=== PATIENT | female | born 1990 | race Caucasian/White ===

== ENCOUNTER → 2017-03-22 | Outpatient (CLI) | payer MEDICAID ==
--- NOTE | 2017-03-22 16:49 | RADIOLOGY REPORT PS360 ---
US PREG COMP: INDICATION: 20 WEKK ANATOMICAL SURVEY ORDERING PHYSICIAN: Yony Terry MD PATIENT AGE: 26 years TECHNIQUE: ultrasound transabdominal scanning. COMPARISON: No previous relevant studies. FINDINGS: Single viable intrauterine gestation. Breech position. Placenta: Anterior placenta grade 1. There is average amount fluid. The cervix appears satisfactory. Closed and measuring 3.5 cm in length. Complete survey performed and was unremarkable on the submitted images as in PACS. No discrete anomalies identified on survey imaging by technologist. Active fetus. Three-vessel cord with satisfactory umbilical cord insertion. 4- chamber heart noted. Survey of brain & ventricles. Face and neck survey unremarkable. Diaphragm and chest views unremarkable. Abdomen: Both kidneys noted and unremarkable. Stomach noted and satisfactory. Spine: Survey of the spine satisfactory with no anomalies identified nor imaged. Both arms and legs noted. Amniotic Fluid: Adequate. Maternal adnexa: No significant findings. Measurements: Average ultrasound age 20 weeks 0 days. Gestational Age 20 weeks 3 days. Estimated due date by ultrasound age 1008/09/2017. Estimated weight 327 grams. BPD = 20 weeks 1 day OFD = 20 weeks 1 day HC = 19 weeks 2 days AC = 20 weeks 1 day FL = 20 weeks 1 day Heart Rate = 139 BPM Cerebellum = 20 weeks 1 day Humerus = 20 weeks 4 days HC/AC is 1.12. CI is 80%. FL/BPD is 70%. FL/AC is 22%. IMPRESSION: There is a single live fetus present in breech presentation with an average ultrasound age of 20 weeks and 0 days. No obvious anomalies evident. Placenta is anterior. Please see above for detail.
== END ==
LOC: RAD 14:00
DX: Z36 Encounter for antenatal screening of mother (principal)

== ENCOUNTER → 2017-07-17 | Outpatient (CLI) | payer MEDICAID ==
[~2017-07-17] MED LIST: PRENATAL PLUS1 TA1 PO
== END ==
LOC: LAB 15:02
DX: Z34.80 Encounter for supervision of other normal pregnancy, unspecified trimester (principal)

== ENCOUNTER 2017-08-01 21:00 | Inpatient (IN) | payer MEDICAID ==
[~2017-08-01] VITALS: Ht 157.5 cm; Wt 95.0 kg
[2017-08-01 21:43] VITALS: BP 136/74
[2017-08-01 21:53] LABS: URINE BILIRUBIN - DIPSTICK NEGATIVE (NEG); URINE BLOOD 2+ (NEG)
[2017-08-01 23:10] LABS: LYMPH # 1.5 K/mm3 (0.7-4.5); LYMPH % 11.3 % (10-50.0)
[2017-08-01 23:46] LABS: ABO BLOOD TYPE A; RH BLOOD TYPE POSITIVE
[2017-08-02 00:59] LABS: URINE BILIRUBIN - DIPSTICK NEGATIVE (NEG); URINE BLOOD TRACE-INTACT (NEG)
[2017-08-02 01:18] LABS: AMPHETAMINES/METAMPHETAMINES NEGATIVE ng/mL (<1000)
[2017-08-02 05:36] VITALS: BP 131/76
--- NOTE | 2017-08-02 05:52 | ACUTE CARE PROGRESS NOTE (QUA) ---
Progress Notes Subjective Date 08/02/17 Time 0550 Assessment/Plan This inpt stay is expected to cross 2 MNs from start of care Yes (OB delivery) Comments: This 27-year-old 2, para 2, AB 0 white female, now at 39 weeks of gestation, was admitted last evening with regular contractions at 3 cm of dilatation. She has labored throughout the night without any problems, and has an epidural in situ. Her cervix is now completely effaced, completely dilated, with the presenting vertex at 0 station. Her bag of water ruptured spontaneously at approximately 05 30, and that was fairly thick meconium. The baby, however, has looked good on the monitor at this time. The plan is for vaginal delivery, with supervisor bottle machines at bedside. at 0595
--- NOTE | 2017-08-02 05:52 | ACUTE CARE PROGRESS NOTE (QUA) ---
Progress Notes Subjective Date 08/02/17 Time 0550 Assessment/Plan This inpt stay is expected to cross 2 MNs from start of care Yes (OB delivery) Comments: This 27-year-old 2, para 2, AB 0 white female, now at 39 weeks of gestation, was admitted last evening with regular contractions at 3 cm of dilatation. She has labored throughout the night without any problems, and has an epidural in situ. Her cervix is now completely effaced, completely dilated, with the presenting vertex at 0 station. Her bag of water ruptured spontaneously at approximately 05 30, and that was fairly thick meconium. The baby, however, has looked good on the monitor at this time. The plan is for vaginal delivery, with manager corporate responsibility at bedside. at 0504
--- NOTE | 2017-08-02 06:23 | Delivery Note ---
Delivery note Delivery date: 08/02/17 Delivery time: 604 Anesthesia: Epidural Was labor medically induced? No Gestational age in weeks: 39 weeks Delivery prior to 39 weeks? No Sex: female score at one minute: 2 at 5 minutes: 7 Type of suction: delee AF: Meconium Delivery procedure: Forceps Delivery Delivery of placenta: manual Clinical note This 27-year-old 2, now para 2, AB 0 white female was admitted at 38 and 67 weeks on the evening of 08/01/17, with regular contractions. She labored throughout the night without complications, under labor epidural, which worked well. At approximately 05 30, she experienced spontaneous rupture of membranes, with a large amount of moderately thick meconium. Is completely dilated at that time. An internal electrode was placed, and the patient pushed ineffectively. The baby's heart rate dropped to approximately 100, and she was delivered by outlet forceps, without an episiotomy. It was a nuchal cord 1, which was easily reduced. The cord was clamped and cut, 3 vessels were noted to be within the cord, and cord blood was obtained. The baby was bulb suctioned and DeLee suctioned on the perineum, prior to delivery of the chest. There was approximately 3 mL of particulate meconium retrieved. The baby was then attended by Dr. Rucker (environmental education specialist) who assigned Apgars of 2 at 1 minute and 7 at 5 minutes to this 6 lbs. 15 oz., 19 inch female , born at 0605. There were no lacerations. The placenta did not deliver spontaneously, and so was manually delivered, fragmented. The uterus was inspected and was felt to be clean, and was involuting well, with IV Pitocin running. The estimated blood loss was 350 mL the patient tolerated the procedure well, and was recovered in excellent condition. Her blood type is A positive. Her rubella titer is immune. She plans to breast-feed. at 0601
[2017-08-02 19:30] VITALS: BP 125/63
[2017-08-03 07:22] LABS: HEMOGLOBIN 11.2 g/dL (12.2-16.2)
[2017-08-03 09:00] VITALS: BP 115/75
--- OUTSIDE RECORDS SUMMARY | 2017-08-03 18:39 | External Medical Summary Rpt | CCD ---
Demographics Home Phone Preferred Language Chinese Marital Status Unknown Bahai Affiliation Unknown Race {RaceCode} Ethnic Group Unknown Author Author , GRABIEL SPAIN Address Unknown Phone [email or web address] Purpose Continuity of Care Document - 12-28-2015 through 2016 Results Labs Lab Lab Date Result Refere Interp Status Commen Order Detail nces retati t Range on Urinalysis dipstick W Reflex Microscopic panel in Urine (08-01-2017 21:15) Appeara CLEAR CLEAR complet nce of 017 ed Urine 21:15 Bilirub NEGATIV NEG complet in 017 E ed [Presen 21:15 ce] in Urine by Test strip Erythro 2+ NEG Abnorma complet cytes 017 l ed [Presen 21:15 ce] in Urine Color YELLOW YELLOW complet of 017 ed Urine 21:15 Ketones 08-01-2 1+ NEG Abnorma complet 017 l ed [Presen 21:15 ce] in Urine by Automat ed test strip Mucus NEGATIV NEG complet [Presen 017 E ed ce] in 21:15 Urine sedimen t by Light microsc opy Nitrite NEGATIV NEG complet 017 E ed [Presen 21:15 ce] in Urine by Test strip Urobili 0.2 NEG complet nogen 017 ed [Presen 21:15 ce] in Urine by Test strip Drugs identified in Urine by Screen method (05-24-2017 13:43) Ampheta NEGATIV <1000 complet mine 017 E ed [Presen 13:43 ce] in Urine by Screen method 11-Hydr NEGATIV <50 complet oxy 017 E ed delta-9 13:43 tetrahy drocann abinol [Presen ce] in Unspeci fied specime n Urinalysis dipstick W Reflex Microscopic panel in Urine (05-24-2017 13:43) Bacteri 4+ O complet a 017 ed [Presen 13:43 ce] in Urine sedimen t by Light microsc opy Epithel 20-50 0#/hp complet ial 017 f - ed cells.s 13:43 5#/hp quamous f [Presen ce] in Urine sedimen t by Microsc opy high power field Leukocy 5-10 O complet christina 017 wbc/hpf ed [#/volu 13:43 me] in Urine Urinalysis dipstick W Reflex Microscopic panel in Urine (05-24-2017 13:43) Appeara SL CLEAR complet nce of 017 CLOUDY ed Urine 13:43 Bilirub NEGATIV NEG complet in 017 E ed [Presen 13:43 ce] in Urine by Test strip Erythro NEGATIV NEG complet cytes 017 E ed [Presen 13:43 ce] in Urine Color YELLOW YELLOW complet of 017 ed Urine 13:43 Ketones TRACE NEG Abnorma complet 017 l ed [Presen 13:43 ce] in Urine by Automat ed test strip Mucus 1+ NEG Abnorma complet [Presen 017 l ed ce] in 13:43 Urine sedimen t by Light microsc opy Nitrite NEGATIV NEG complet 017 E ed [Presen 13:43 ce] in Urine by Test strip Urobili 0.2 NEG complet nogen 017 ed [Presen 13:43 ce] in Urine by Test strip Blood group antibody screen [Presence] in Serum or Plasma (03-08-2017 09:46) Blood 03-08- NEGATIV NEGATIV complet group 017 E E ed antibod 09:46 y screen [Presen ce] in Serum or Plasma Rh [Type] in Blood (03-08-2017 09:46) Rh -19-2 POSITIV complet [Type] 017 E ed in 09:46 Blood ABO group [Type] in Blood (03-08-2017 09:46) ABO --2 A complet group 017 ed [Type] 09:46 in Blood CHLAMYDIA AND GONORRHEA TESTING (12-28-2015 09:30) Chlamyd POSITIV complet ia 016 E ed trachom 09:30 atis rRNA [Presen ce] in Unspeci fied specime n by Probe & target amplifi cation method Neisser NEGATIV complet ia 016 E ed gonorrh 09:30 oeae rRNA [Presen ce] in Unspeci fied specime n by Probe & target amplifi cation method CHLAMYDIA AND GONORRHEA TESTING (12-28-2015 09:30) COLLECT PATIENT complet OR 016 /[id number] ed 09:30 ETHNICI WHITE, complet TY 016 NON-HIS ed 09:30 PANIC KIT complet EXPIRAT 016 016 ed ION 09:30 DATE SYMPTOM NO complet S 016 ed 09:30 REASON REVISIT complet FOR 016 /ANNUAL ed REQUEST 09:30 FAMILY PLANNIN G VISIT SPECIME URINE complet N 016 ed SOURCE 09:30 PREGNAN NO complet T 016 ed 09:30 CHART NA complet NUMBER 016 ed 09:30 Chlamyd Pending complet ia 016 ed trachom 09:30 atis rRNA [Presen ce] in Unspeci fied specime n by Probe & target amplifi cation method Neisser Pending complet ia 016 ed gonorrh 09:30 oeae rRNA [Presen ce] in Unspeci fied specime n by Probe & target amplifi cation method
--- OUTSIDE RECORDS SUMMARY | 2017-08-03 18:39 | External Medical Summary Rpt | CCD ---
Demographics Home Phone Preferred Language Swiss Marital Status Unknown Jewish Affiliation Unknown Race {RaceCode} Ethnic Group Unknown Author Author , GRABIEL SPAIN Address Unknown Phone [email or web address] Purpose Continuity of Care Document - 12-28-2015 [...]
--- OUTSIDE RECORDS SUMMARY | 2017-08-03 18:39 | External Medical Summary Rpt | CCD ---
Demographics Preferred Language Czech Marital Status Unknown Buddhist Affiliation Unknown Race Unknown Ethnic Group Unknown Author Author , GRABIEL SPAIN Address Unknown Phone Immunization No patient found.
--- OUTSIDE RECORDS SUMMARY | 2017-08-03 18:39 | External Medical Summary Rpt | CCD ---
Demographics Preferred Language Tajik Marital Status Unknown Voodoo Affiliation Unknown Race Unknown Ethnic Group Unknown Author Author , GRABIEL SPAIN Address Unknown Phone Immunization No patient found.
--- OUTSIDE RECORDS SUMMARY | 2017-08-03 18:39 | External Medical Summary Rpt | CCD ---
Author Author [employer] Organization [employer] Address Unknown Phone Unavailable Purpose Continuity of Care Document - through 2016
--- OUTSIDE RECORDS SUMMARY | 2017-08-03 18:40 | External Medical Summary Rpt ---
Author Author [employer] Nunez, [employer] Organization [employer] Address Unknown Phone Unavailable Results Urinalysis dipstick W Reflex Microscopic panel in Urine Observa Value Referen Units Interpr Notes Date tion ce etation Range Collected by nurse? Y Hold specimen in OE? N Appeara CLEAR CLEAR No No No Aug 01 nce of informa informa informa 2016 Urine tion in tion in tion in 9:15 PM source source source data data data Bilirub NEGATIV NEG No No No Aug 01 in E informa informa informa 2016 [Presen tion in tion in tion in 9:15 PM ce] in source source source Urine data data data by Test strip Erythro 2+ NEG No Abnorma No Aug 01 cytes informa l informa 2016 [Presen tion in tion in 9:15 PM ce] in source source Urine data data Color YELLOW YELLOW No No No Aug 01 of informa informa informa 2016 Urine tion in tion in tion in 9:15 PM source source source data data data Glucose NEG No No No Aug 01 [Mass/vol informati informati informati 2017 9:15 ume] in on in on in on in PM Urine by source source source Test data data data strip Ketones 1+ NEG mg/dL Abnorma No Aug 01 l informa 2016 [Presen tion in 9:15 PM ce] in source Urine data by Automat ed test strip Mucus NEGATIV NEG No No No Aug 01 [Presen E informa informa informa 2016 ce] in tion in tion in tion in 9:15 PM Urine source source source sedimen data data data t by Light microsc opy Nitrite NEGATIV NEG No No No Aug 01 E informa informa informa 2016 [Presen tion in tion in tion in 9:15 PM ce] in source source source Urine data data data by Test strip pH of 5.0 - 8.5 No Normal No Aug 01 Urine informati informati 2017 9:15 on in on in PM source source data data Protein NEG mg/dL No No Aug 01 [Mass/vol informati informati 2016 9:15 ume] in on in on in PM Urine by source source Automated data data test strip Specific 1.005 - No Normal No Aug 01 gravity 1.030 informati informati 2016 9:15 of Urine on in on in PM source source data data Urobili 0.2 NEG E.U./dL No No Aug 01 nogen informa informa 2016 [Presen tion in tion in 9:15 PM ce] in source source Urine data data by Test strip Fibronectin. [Mass/volume] in Vaginal fluid Observa Value Referen Units Interpr Notes Date tion ce etation Range Fibronect NEGATIVE No No May 24 in. informati informati FIBRONECT 2017 2:05 [Mass/vol on in on in IN PM ume] in source source INTERPRET Vaginal data data ATION:Sym fluid ptomatic women: There is an increased risk of deliveryw ithin 14 days for positive results obtained between 24weeks and 34 weeks,6 days of gestation .Asymptom atic women: There is an increased risk of deliverya t less than 35 weeks for positive results obtained [id number] weeks and 30 weeks,6 days of gestation . Drugs identified in Urine by Screen method Observa Value Referen Units Interpr Notes Date tion ce etation Range Collected by nurse? N Hold specimen in OE? Y Positive urine drug screen samples are stored for 7 days. Contact the Lab if confirmation of positives is needed. Ampheta NEGATIV <1000 ng/mL No No May 24 mine E informa informa 2016 [Presen tion in tion in 1:43 PM ce] in source source Urine data data by Screen method Barbitura <200 ng/mL No No May 24 christina informati informati 2016 1:43 [Mass/vol on in on in PM ume] in source source Urine by data data Screen method Benzodiaz 200 ng/mL ng/mL No No May 24 epines informati informati 2017 1:43 [Mass/vol on in on in PM ume] in source source Serum or data data Plasma by Screen method Cocaine <300 ng/g No No May 24 [Mass/vol informati informati 2017 1:43 ume] in on in on in PM Unspecifi source source ed data data specimen Methadone <300 ng/mL No No May 24 informati informati 2017 1:43 [Mass/vol on in on in PM ume] in source source Unspecifi data data ed specimen Opiates <300 ng/mL No No May 24 [Mass/vol informati informati 2017 1:43 ume] in on in on in PM Unspecifi source source ed data data specimen Phencycli <25 ng/mL No No May 24 dine informati informati 2017 1:43 [Mass/vol on in on in PM ume] in source source Unspecifi data data ed specimen 11-Hydr NEGATIV <50 ng/mL No No May 24 oxy E informa informa 2017 delta-9 tion in tion in 1:43 PM source source tetrahy data data drocann abinol [Presen ce] in Unspeci fied specime n Urinalysis dipstick W Reflex Microscopic panel in Urine Observa Value Referen Units Interpr Notes Date tion ce etation Range Collected by nurse? N Hold specimen in OE? Y Appeara SL CLEAR No No No May 24 nce of CLOUDY informa informa informa 2017 Urine tion in tion in tion in 1:43 PM source source source data data data Bacteri 4+ O No No No May 24 a informa informa informa 2016 [Presen tion in tion in tion in 1:43 PM ce] in source source source Urine data data data sedimen t by Light microsc opy Bilirub NEGATIV NEG No No No May 24 in E informa informa informa 2016 [Presen tion in tion in tion in 1:43 PM ce] in source source source Urine data data data by Test strip Erythro NEGATIV NEG No No No May 24 cytes E informa informa informa 2016 [Presen tion in tion in tion in 1:43 PM ce] in source source source Urine data data data Color YELLOW YELLOW No No No May 24 of informa informa informa 2017 Urine tion in tion in tion in 1:43 PM source source source data data data Glucose NEG No No No May 24 [Mass/vol informati informati informati 2017 1:43 ume] in on in on in on in PM Urine by source source source Test data data data strip Ketones TRACE NEG mg/dL Abnorma No May 24 l informa 2016 [Presen tion in 1:43 PM ce] in source Urine data by Automat ed test strip Mucus 1+ NEG No Abnorma No May 4 [Presen informa l inform2016 ce] in tion in tion in 1:43 PM Urine source source sedimen data data t by Light microsc opy Nitrite NEGATIV NEG No No No May 24 E informa informa informa 2016 [Presen tion in tion in tion in 1:43 PM ce] in source source source Urine data data data by Test strip pH of 5.0 - 8.5 No Normal No May 24 Urine informati informati 2017 1:43 on in on in PM source source data data Protein NEG mg/dL High No May 24 [Mass/vol informati 2017 1:43 ume] in on in PM Urine by source Automated data test strip Specific 1.005 - No Normal No May 24 gravity 1.030 informati informati 2017 1:43 of Urine on in on in PM source source data data Epithel 20-50 0 - 5 #/hpf No No May 24 ial informa informa 2016 cells.s tion in tion in 1:43 PM quamous source source data data [Presen ce] in Urine sedimen t by Microsc opy high power field Urobili 0.2 NEG E.U./dL No No May 24 nogen informa inform2016 [Presen tion in tion in 1:43 PM ce] in source source Urine data data by Test strip Leukocy [5 O wbc/hpf No No May 4 christina wbc/hpf informa informa 2016 [#/volu ; 10 tion in tion in 1:43 PM me] in wbc/hpf source source Urine ] data data Urinalysis dipstick W Reflex Microscopic panel in Urine Observa Value Referen Units Interpr Notes Date tion ce etation Range Collected by nurse? N Hold specimen in OE? Y Appeara SL CLEAR No No No May 24 nce of CLOUDY informa informa informa 2016 Urine tion in tion in tion in 1:43 PM source source source data data data Bilirub NEGATIV NEG No No No May 4 in E informa informa informa 2016 [Presen tion in tion in tion in 1:43 PM ce] in source source source Urine data data data by Test strip Erythro NEGATIV NEG No No No May 24 cytes E informa informa informa 2016 [Presen tion in tion in tion in 1:43 PM ce] in source source source Urine data data data Color YELLOW YELLOW No No No May 4 of informa informa informa 2016 Urine tion in tion in tion in 1:43 PM source source source data data data Glucose NEG No No No May 24 [Mass/vol informati informati informati 2016 1:43 ume] in on in on in on in PM Urine by source source source Test data data data strip Ketones TRACE NEG mg/dL Abnorma No May 24 l informa 2016 [Presen tion in 1:43 PM ce] in source Urine data by Automat ed test strip Mucus 1+ NEG No Abnorma No May 4 [Pres informa l informa 2016 ce] in tion in tion in 1:43 PM Urine source source sedimen data data t by Light microsc opy Nitrite NEGATIV NEG No No No May 24 E informa informa informa 2016 [Presen tion in tion in tion in 1:43 PM ce] in source source source Urine data data data by Test strip pH of 5.0 - 8.5 No Normal No May 24 Urine informati informati 2017 1:43 on in on in PM source source data data Protein NEG mg/dL High No May 24 [Mass/vol informati 2016 1:43 ume] in on in PM Urine by source Automated data test strip Specific 1.005 - No Normal No May 24 gravity 1.030 informati informati 2017 1:43 of Urine on in on in PM source source data data Urobili 0.2 NEG E.U./dL No No May 24 nogen informa informa 2016 [Presen tion in tion in 1:43 PM ce] in source source Urine data data by Test strip HBsAg Screen Observa Value Referen Units Interpr Notes Date tion ce etation Range Hepatit Negativ Negativ No No Perform March 08 is B e e informa informa ed at: 2016 virus tion in tion in CB - 9:46 AM surface source source [facility] Ag data data [Pres ce] in [address] by [facility], [facility], [facility] [id number] Directo r: Mychal Sethi ti PhD, Phone: [phone] HIV Screen 4th Generation wRfx Observa Value Referen Units Interpr Notes Date tion ce etation Range Reagin Ab [Titer] in Serum by RPR Observa Value Referen Units Interpr Notes Date tion ce etation Range Reagin Ab NonRea<1: No No No March 08 [Titer] 1 informati informati informati 2016 9:46 in Serum on in on in on in AM by RPR source source source data data data Rubella virus IgG Ab [Units/volume] in Serum by Immunoassay Observa Value Referen Units Interpr Notes Date tion ce etation Range Rubella Immune index No Non-immun March 08 virus IgG >0.99 informati e 2016 9:46 Ab on in <0.90Equi AM [Units/vo source vocal lume] in data 0.90 - Serum by 0.99Immun Immunoass e ay >0.99 Blood group antibody screen [Presence] in Serum or Plasma Observa Value Referen Units Interpr Notes Date ti ce etation Range Blood NEGATIV NEGATIV No No No March 08 group E E informa informa informa 2016 antibod tion in ti in in 9:46 AM y source source source screen data data data [Presen ce] in Serum or Plasma Rh [Type] in Blood Observa Value Referen Units Interpr Notes Date ti ce etation Range Rh POSITIV No No No No March 08 [Type] E informa informa informa informa 2016 in tion in tion in tion in ti in 9:46 AM Blood source source source source data data data data ABO group [Type] in Blood Observa Value Referen Units Interpr Notes Date ti ce etation Range ABO A No No No No March 08 group informa informa informa informa 2016 [Type] tion in tion in tion in ti in 9:46 AM in source source source source Blood data data data data CBC W Auto Differential panel in Blood Observa Value Referen Units Interpr Notes Date ti ce etation Range Basophils 0 - 0.2 K/MM3 Normal No March 08 informati 2016 9:46 [#/volume on in AM ] in source Blood by data Automated count Basophils 0.1 - 2.0 % Normal No March 08 informati 2016 9:46 leukocyte on in AM s in source Blood by data Automated count Eosinophi 0.0 - 0.4 K/mm3 Normal No March 08 ls informati 2016 9:46 [#/volume on in AM ] in source Blood by data Automated count Eosinophi 0.1 - % Normal No March 08 ls/100 12.0 informati 2016 9:46 leukocyte on in AM s in source Blood by data Automated count Granulocy 1.8 - 7.8 K/mm3 Normal No March 08 christina informati 2016 9:46 [#/volume on in AM ] in source Blood by data Automated count Granulocy 37.0 - % Normal No March 08 christina/100 80.0 informati 2016 9:46 leukocyte on in AM s in source Blood by data Automated count Hematocri 37.0 - % Low No March 08 t [Volume 47.0 informati 2016 9:46 on in AM Fraction] source of Blood data Hemoglobi 12.2 - g/dL No March 08 n 16.2 informati informati 2016 9:46 [Mass/vol on in on in AM ume] in source source Blood data data Lymphocyt 0.7 - 4.5 K/mm3 Normal No March 08 es informati 2016 9:46 [#/volume on in AM ] in source Unspecifi data ed specimen by Automated count Lymphocyt 10 - 50.0 % Normal No March 08 es inform2016 9:46 [#/volume on in AM ] in source Unspecifi data ed specimen by Automated count Erythrocy 27 - 31.2 pg High No March 08 te mean informati 2016 9:46 corpuscul on in AM ar source hemoglobi data n [Entitic mass] Erythrocy 31.8 - g/dl Normal March 08 te mean 35.4 informati 2016 9:46 corpuscul on in AM ar source hemoglobi data n concentra tion [Mass/vol ume] by Automated count Erythrocy 82.2 - fl Normal March 08 te mean 97.8 informati 2016 9:46 corpuscul on in AM ar volume source [Entitic data volume] by Automated count Monocytes 0.1 - 1.0 K/mm3 Normal March 08 informati 2016 9:46 [#/volume on in AM ] in source Blood by data Automated count Monocytes 1.7 - 9.3 % Normal No March 08 / informati 2016 9:46 leukocyte on in AM s in source Blood by data Automated count Platelet 7.4 - fl Low No March 08 mean 10.4 informati 2016 9:46 volume on in AM [Entitic source volume] data in Blood by Automated count Platelets 142 - 424 K/mm3 Normal No March 08 informati 2016 9:46 [#/volume on in AM ] in source Blood data Erythrocy 4.2 - 5.4 M/mm3 Low No March 08 christina informati 2016 9:46 [#/volume on in AM ] in source Amniotic data fluid Erythrocy 11.5 - % Normal No March 08 te 17.5 informati 2016 9:46 distribut on in AM ion width source [Entitic data volume] by Automated count Leukocyte 4.8 - K/MM3 Normal No March 08 s 10.8 informati 2016 9:46 [#/volume on in AM ] in source Blood data CHLAMYDIA AND GONORRHEA TESTING Observa Value Referen Units Interpr Notes Date tion ce etation Range COLLECT PATIENT No No No No Dec 27 OR /[id number] informa informa informa informa 2016 tion in tion in tion in tion in 9:30 AM source source source source data data data data ETHNICI WHITE, No No No No Dec 27 TY NON-HIS informa informa informa informa 2016 PANIC tion in tion in tion in tion in 9:30 AM source source source source data data data data KIT 04-30-2 No No No No Dec 27 EXPIRAT 016 informa informa informa informa 2016 ION tion in tion in tion in tion in 9:30 AM DATE source source source source data data data data SYMPTOM NO No No No No Dec 27 S informa informa informa informa 2016 tion in tion in tion in tion in 9:30 AM source source source source data data data data REASON REVISIT No No No No Dec 27 FOR /ANNUAL informa informa informa informa 2016 REQUEST FAMILY tion in tion in tion in tion in 9:30 AM source source source source PLANNIN data data data data G VISIT SPECIME URINE No No No No Dec 27 N informa informa informa informa 2016 SOURCE tion in tion in tion in tion in 9:30 AM source source source source data data data data PREGNAN NO No No No No Dec 27 T informa informa informa informa 2016 tion in tion in tion in tion in 9:30 AM source source source source data data data data CHART NA No No No No Dec 27 NUMBER informa informa informa informa 2016 tion in tion in tion in tion in 9:30 AM source source source source data data data data Chlamyd POSITIV No No No NEGATIV Dec 27 ia E informa informa informa E 2016 trachom tion in tion in tion in RESULT= 9:30 AM atis source source source WITHIN rRNA data data data NORMAL [Presen ce] in LIMITSP Unspeci OSITIVE fied specime RESULT= n by Probe & ABNORMA target LEQUIVO BARTOLOME amplifi RESULT= cation method INDETER MINATEU NSATISF ACTORY RESULT= INVALID Neisser NEGATIV No No No NEGATIV Dec 27 ia E informa informa informa E 2016 gonorrh tion in tion in tion in RESULT= 9:30 AM oeae source source source WITHIN rRNA data data data NORMAL [Presen ce] in LIMITSP Unspeci OSITIVE fied specime RESULT= n by Probe & ABNORMA target LEQUIVO BARTOLOME amplifi RESULT= cation method INDETER MINATEU NSATISF ACTORY RESULT= INVALID THE APTIMA COMBO 2 ASSAY IS NOT INTENDE D FOR THE EVALUAT ION OF SUSPECT EDSEXUA L ABUSE OR FOR OTHER MEDICO- LEGAL INDICAT IONS. FOR THOSE PATIENT S FORWHOM A FALSE POSITIV E RESULT MAY HAVE ADVERSE PSYCHO- SOCIAL IMPACT, THE CDCRECO MMENDS RETESTI NG.\.br \This report contain s patient informa tion that must be protect ed in accorda nce with the Health Insuran ce Portabi lity and Account ability Act. CHLAMYDIA AND GONORRHEA TESTING Observa Value Referen Units Interpr Notes Date tion ce etation Range COLLECT PATIENT No No No No Dec 27 OR /[id number] informa informa informa informa 2016 tion in tion in tion in tion in 9:30 AM source source source source data data data data ETHNICI WHITE, No No No No Dec 27 TY NON-HIS informa informa informa informa 2016 PANIC tion in tion in tion in tion in 9:30 AM source source source source data data data data KIT 04-30-2 No No No No Dec 27 EXPIRAT 016 informa informa informa informa 2016 ION tion in tion in tion in tion in 9:30 AM DATE source source source source data data data data SYMPTOM NO No No No No Dec 27 S informa informa informa informa 2016 tion in tion in tion in tion in 9:30 AM source source source source data data data data REASON REVISIT No No No No Dec 27 FOR /ANNUAL informa informa informa informa 2016 REQUEST FAMILY tion in tion in tion in tion in 9:30 AM source source source source PLANNIN data data data data G VISIT SPECIME URINE No No No No Dec 27 N informa informa informa informa 2016 SOURCE tion in tion in tion in tion in 9:30 AM source source source source data data data data PREGNAN NO No No No No Dec 27 T informa informa informa informa 2016 tion in tion in tion in tion in 9:30 AM source source source source data data data data CHART NA No No No No Dec 27 NUMBER informa informa informa informa 2016 tion in tion in tion in tion in 9:30 AM source source source source data data data data Chlamyd Pending No No No No Dec 27 ia informa informa informa informa 2016 trachom tion in tion in tion in tion in 9:30 AM atis source source source source rRNA data data data data [Presen ce] in Unspeci fied specime n by Probe & target amplifi cation method Neisser Pending No No No \.br\Dec 27 ia informa informa informa is 2016 gonorrh tion in tion in tion in report 9:30 AM oeae source source source contain rRNA data data data s [Presen patient ce] in Unspeci informa fied tion specime that n by must be Probe & target protect ed in amplifi accorda cation nce method with the Health Insuran ce Portabi lity and Account ability Act.
--- OUTSIDE RECORDS SUMMARY | 2017-08-03 18:40 | External Medical Summary Rpt ---
[...] than 35 weeks for positive results obtained [id number] weeks and 30 weeks,6 days of gestation [...] [Pres ce] in [address] [place] by [facility], [facility], [facility] [id number] 69Lab Directo r: Mychal Sethi ti PhD, Phone: [phone] HIV Screen 4th Generation wRfx Observa Value [...]
[2017-08-03 20:23] VITALS: BP 118/66
[2017-08-04 07:45] VITALS: BP 137/73
--- NOTE | 2017-08-04 11:02 | ACUTE CARE PROGRESS NOTE (QUA) ---
Vaginal Delivery Progress Note Subjective Date 08/04/17 Time 1058 Note Pt doing well. Without complaints. Mild abdominal cramping. Lochia decreasing. No LE swelling. Ambulating, voiding, tolerating po. Objective Vital signs: Last VS-Temp:98.3 B/P:137/73 Pulse:70 Resp:18 SaO2: Last weight lbs:209 oz:6 K.972 Method:Floor Scales OB exam: Abdominal exam: fundus firm (NT/ND) exam: lochia normal Assessment/Plan Patient condition Stable Plan: continue current care (PPD#2) This inpt stay is expected to cross 2 MNs from start of care Yes (OB delivery) Comments: Stable for discharge home. Precautions reviewed. Follow-up 2 weeks with OB. at 1102
== END 2017-08-04 12:20 | disposition home or self-care (01) | DRG 767 ==
LOC: OBOUT 21:00 → OB 21:01 → OBOUT 22:25 → OB 22:25
PROVIDERS: Obstetrics & Gynecology
PROC: 10D17Z9 Manual Extraction of Products of Conception, Retained, Via Natural or Artificial Opening (ICD-10-PCS; principal; 2017-08-02)
PROC: 10D07Z3 Extraction of Products of Conception, Low Forceps, Via Natural or Artificial Opening (ICD-10-PCS; principal; 2017-08-02)
DX: O77.0 Labor and delivery complicated by meconium in amniotic fluid (principal); O66.5 Attempted application of vacuum extractor and forceps; O73.0 Retained placenta without hemorrhage; Z3A.39 39 weeks gestation of pregnancy; Z37.0 Single live birth; O69.81X0 Labor and delivery complicated by cord around neck, without compression, not applicable or unspecified
CPT/HCPCS: J0595